=== PATIENT | female | born 1945 | race Caucasian/White ===

== ENCOUNTER → 2021-02-17 | Outpatient (CLI) | payer OTHER ==
[~2021-02-17] MED LIST: ADVAIR HFA 115/1 INH INH; ASPIR 8181 MG PO; COZAAR100 MG PO; ELIQUIS5 MG PO; FLONASE 0.05% N16 GM; IMDUR ER TAB 3030 MG PO; KEFLEX500 MG PO; LASIX20 MG PO; MELATONIN3 MG PO; MULTAQ 400 MG400 MG PO; NITROGLYCERIN0.4 MG SL; PRAVASTATIN SOD20 MG PO; SPIRIVA RESPIMAT4 GM INH; TOPROL XL25 MG PO; VENTOLIN HFA 66.7 GM INH; VITAMIN D2000 UNIT PO
== END ==
LOC: KOH-I 15:23
DX: M54.5 Low back pain (principal); M47.817 Spondylosis without myelopathy or radiculopathy, lumbosacral region; M25.78 Osteophyte, vertebrae
CPT/HCPCS: 72110